=== PATIENT | female | born 1960 | race Caucasian/White ===

== ENCOUNTER 2017-06-16 09:37 | Day surgery (SDC) | payer BC, OTHER ==
[2017-06-13 13:07] VITALS: BMI 40.7
[~2017-06-16 09:37] MED LIST: LACTATED RINGERS 1,000 ML IV SCH
[2017-06-16 10:27] VITALS: RESP 18; TEMP 98.4
[2017-06-16] MEDS ORDERED: LIDOCAINE 1% 20 ML VIAL (10MG/ML) FOR IV START INTRADERMA ONE (10:35)
[2017-06-16 10:39] LABS: Glucose,Whole Blood 126 mg/dL (75-99)
[2017-06-16] MEDS ORDERED: PROPOFOL 10 MG/ML 20 ML VIAL IV ONE (11:00)
[2017-06-16] MEDS ORDERED: LIDOCAINE 1% INJ 10MG/ML (20 ML MDV) ONE (11:00)
[2017-06-16 11:46] LABS: Glucose,Whole Blood 115 mg/dL (75-99)
[2017-06-16 11:57] VITALS: BP 148/77; PULSE 80
--- NOTE | 2017-06-16 12:58 | P.PCN ---
Date of Procedure: 06/16/17 Procedure(s) Performed: Procedure: Colonoscopy and polypectomy. Preoperative diagnosis: Hemoccult-positive stools and intermittent rectal bleeding. Postoperative diagnosis: 1. Sigmoid polyp snared but no large polyps or cancer. 2. Low-grade internal hemorrhoids without bleeding at the time of this exam. Preparation: HalfLytely prep. Sedation: Was provided by anesthesia. Brief clinical history: The patient is a 56-year-old female who is referred for this evaluation for the above reasons. The patient reports intermittent bleeding with no change in bowel habits or the color of her stools. She male a stool test that returned positive. There is no family history of colon cancer and this would be her first colonoscopy. Procedure: With the patient on her left lateral decubitus position and after informed consent and adequate sedation, the perianal area was inspected and it did not show any fissures or fistulas. There were no masses felt on digital rectal examination. The Olympus CFQ 160L video colonoscope was then inserted in the rectum in the usual fashion and advanced to the cecum. There was a rare diverticular orifice in the sigmoid and at around 35 cm from the anal verge there was a small/medium-sized polyp which was snared and retrieved by suctioning it to the tip of the endoscope and withdrawing the endoscope and restarting the examination. Elsewhere, there were no other abnormalities of the cecum. I retroflexed the endoscope in the rectum before the endoscope was withdrawn. Low-grade internal hemorrhoids were noted without bleeding. The patient tolerated the procedure well. Plan: The patient was reassured. Discussed dietary measures and local care for hemorrhoids. She will follow-up with you as planned and I recommended repeat exam in 5 years.
== END 2017-06-16 12:20 | disposition home or self-care (01) ==
LOC: ORWHC2ENDO 09:37
DX: D12.5 Benign neoplasm of sigmoid colon (principal); K64.8 Other hemorrhoids; I10 Essential (primary) hypertension; E78.5 Hyperlipidemia, unspecified; G47.33 Obstructive sleep apnea (adult) (pediatric); E11.29 Type 2 diabetes mellitus with other diabetic kidney complication; N28.9 Disorder of kidney and ureter, unspecified; Z88.8 Allergy status to other drugs, medicaments and biological substances; Z79.4 Long term (current) use of insulin; Z79.899 Other long term (current) drug therapy
CPT/HCPCS: 45385; 88305; J2001; J2704

== ENCOUNTER → 2017-07-24 | Outpatient (CLI) | payer BC ==
--- NOTE | 2017-07-24 23:16 | US ---
EXAMINATION TYPE: US kidneys/renal and bladder DATE OF EXAM: 07/24/2017 COMPARISON: NONE CLINICAL HISTORY: Chronic kidney disease Stage 3 N18.3. abnormal labs EXAM MEASUREMENTS: Right Kidney: 9.3 x 4.9 x 5.4 cm Left Kidney: 9.1 x 4.0 x 5.5 cm Right Kidney: wnl as visualized Left Kidney: medial anechoic lesion at hilum = 1.4 x 1.3 cm Bladder: distended, wnl as visualized Bilateral Jets seen There is no evidence for hydronephrosis at this point in time. No nephrolithiasis is seen. No isiah s are identified in the right kidney. Technologist marked 1.4 cm round hypoechoic anechoic lesion fa voring simple cyst as there is some increased through transmission medially mid to lower pole level l eft kidney. The lesion is overall too small to definitively characterize. The urinary bladder is anec hoic. Bilateral ureteral jets are seen. IMPRESSION: No hydronephrosis is evident bilaterally.
== END | disposition home or self-care (01) ==
LOC: RADUSWWP 16:02
PROVIDERS: ATTEND Internal Medicine Nephrology
DX: N18.3 Chronic kidney disease, stage 3 (moderate) (principal)
CPT/HCPCS: 76770

== ENCOUNTER → 2019-10-11 | Outpatient (CLI) | payer BC | END | disposition home or self-care (01) | DX: N18.4 Chronic kidney disease, stage 4 (severe) (principal) | CPT/HCPCS: 76770 ==

== ENCOUNTER 2020-05-10 17:07 | Emergency (ER) | payer BC ==
[2020-05-10 17:31] VITALS: RESP 18
[2020-05-10] MEDS ORDERED: FAMOTIDINE 20 MG/2 ML VIAL IV STA (17:50)
[2020-05-10] MEDS ORDERED: SODIUM CHLORIDE 0.9% 1,000 ML IV STA (17:50)
[2020-05-10] MEDS ORDERED: ONDANSETRON 4 MG/2 ML VIAL IVP STA (17:50)
--- NOTE | 2020-05-10 17:53 | ED ---
General Adult HPI - General Chief complaint: Nausea/Vomiting/Diarrhea Stated complaint: vomiting/diarrhea Time Seen by Provider: 05/10/20 17:32 Source: patient, RN notes reviewed Mode of arrival: ambulatory Limitations: no limitations - History of Present Illness Initial comments: Patient is a pleasant 59-year-old female presenting to the emergency department with fatigue. Patient states she had 2-3 days of nausea vomiting diarrhea. Patient had approximately 3 episodes daily of vomiting and diarrhea. This has resolved however a mukherjee still has some decreased oral intake. Patient still has some nausea. No abdominal pain. No fever, temperature was 98.1 at home. Patient does have history of severe kidney disease however is not on dialysis. Patient is diabetic and her blood sugars have been doing fine. - Related Data Home Medications Medication Instructions Recorded Confirmed Aspirin 81 mg PO DAILY 06/13/17 06/16/17 Atorvastatin [Lipitor] 10 mg PO DAILY 06/13/17 06/16/17 Cholecalciferol [Vitamin D3] 1,000 unit PO DAILY 06/13/17 06/16/17 Furosemide [Lasix] 40 mg PO DAILY 06/13/17 06/16/17 Insulin Aspart (For Pump) [NovoLOG 0.01 unit SQ-PUMP CONTINUOUS 06/13/17 06/16/17 (For Pump)] Losartan Potassium [Cozaar] 25 mg PO HS 06/13/17 06/16/17 Metoprolol Succinate (ER) [Toprol 50 mg PO DAILY 06/13/17 06/16/17 Xl] Potassium Chloride [Klor-Con 20] 20 meq PO DAILY 06/13/17 06/16/17 Thiamine [Vitamin B-1] 100 mg PO DAILY 06/13/17 06/16/17 allopurinoL [Zyloprim] 100 mg PO DAILY 06/13/17 06/16/17 Previous Rx's Medication Instructions Recorded Cephalexin [Keflex] 500 mg PO TID #21 cap 05/10/20 Allergies Allergy/AdvReac Type Severity Reaction Status Date / Time lisinopril Allergy Cough Verified 06/16/17 10:30 Review of Systems ROS Statement: Those systems with pertinent positive or pertinent negative responses have been documented in the HPI. ROS Other: All systems not noted in ROS Statement are negative. Constitutional: Denies: fever Eyes: Denies: eye pain ENT: Denies: ear pain Respiratory: Denies: cough Cardiovascular: Denies: chest pain Endocrine: Reports: fatigue Gastrointestinal: Reports: as per HPI, nausea Genitourinary: Denies: dysuria Musculoskeletal: Denies: back pain Skin: Denies: rash Neurological: Denies: weakness Past Medical History Past Medical History: Hyperlipidemia, Hypertension, Renal Disease, Sleep Apnea/CPAP/BIPAP Additional Past Medical History / Comment(s): Kidney disease Stage 4 for the last 4 years, states due to her Diabetes. Also has pain in her feet. States BP has been dropping so has cut BP medication in half. History of Any Multi-Drug Resistant Organisms: None Reported Past Surgical History: Breast Surgery, Section, Uterine Ablation Additional Past Surgical History / Comment(s): L breast bx. Bilat feet surgery. Past Anesthesia/Blood Transfusion Reactions: Previous Problems w/ Anesthesia Additional Past Anesthesia/Blood Transfusion Reaction / Comment(s): States stopped breathing when she had her breast bx. States she absorbs sedation quickly and is very sensitive to sedation so she does not require very much. She is very nervous about getting sedation for this procedure. States her mother has the same problem. Past Psychological History: No Psychological Hx Reported Smoking Status: Never smoker Past Alcohol Use History: None Reported Past Drug Use History: None Reported - Past Family History Mother Family Medical History: No Reported History General Exam Limitations: no limitations General appearance: alert, in no apparent distress Head exam: Present: normocephalic Eye exam: Present: normal appearance Neck exam: Present: normal inspection Respiratory exam: Present: normal lung sounds bilaterally Cardiovascular Exam: Present: regular rate, normal rhythm GI/Abdominal exam: Present: soft. Absent: distended, tenderness, guarding, rebound, rigid Extremities exam: Present: normal inspection. Absent: pedal edema, calf tenderness Neurological exam: Present: alert Psychiatric exam: Present: normal affect, normal mood Skin exam: Present: normal color Course Vital Signs 05/10/20 17:29 Temperature 98.4 F Pulse Rate 78 Respiratory 18 Rate Blood Pressure 120/72 O2 Sat by Pulse 100 Oximetry Medical Decision Making - Medical Decision Making Patient reevaluated and resting comfortably at bedside. Patient is feeling better. Patient refuses antiemetic prescription for home. Patient believes her normal GFR is 25. Patient updated on results and need for follow-up. - Lab Data Result diagrams: 05/10/20 18:10 05/10/20 19:08 Lab Results 05/10/20 05/10/20 05/10/20 Range/Units 18:10 18:10 18:14 WBC 3.7 L (3.8-10.6) k/uL RBC 4.66 (3.80-5.40) m/uL Hgb 14.5 (11.4-16.0) gm/dL Hct 43.1 (34.0-46.0) % MCV 92.4 (80.0-100.0) fL MCH 31.1 (25.0-35.0) pg MCHC 33.7 (31.0-37.0) g/dL RDW 13.0 (11.5-15.5) % Plt Count 157 (150-450) k/uL Neutrophils % 58 % Lymphocytes % 28 % Monocytes % 9 % Eosinophils % 1 % Basophils % 1 % Neutrophils # 2.2 (1.3-7.7) k/uL Lymphocytes # 1.1 (1.0-4.8) k/uL Monocytes # 0.3 (0-1.0) k/uL Eosinophils # 0.0 (0-0.7) k/uL Basophils # 0.0 (0-0.2) k/uL Sodium (137-145) mmol/L Potassium (3.5-5.1) mmol/L Chloride (98-107) mmol/L Carbon Dioxide (22-30) mmol/L Anion Gap mmol/L BUN (7-17) mg/dL Creatinine (0.52-1.04) mg/dL Est GFR (CKD-EPI)AfAm (>60 ml/min/1.73 sqM) Est GFR (CKD-EPI)NonAf (>60 ml/min/1.73 sqM) Glucose (74-99) mg/dL POC Glucose (mg/dL) 137 H (75-99) mg/dL POC Glu [place] ID Mariana Mercedes Calcium (8.4-10.2) mg/dL Total Bilirubin (0.2-1.3) mg/dL AST (14-36) U/L ALT (4-34) U/L Alkaline Phosphatase (38-126) U/L Total Protein (6.3-8.2) g/dL Albumin (3.5-5.0) g/dL Amylase (30-110) U/L Lipase (23-300) U/L Urine Color Yellow Urine Appearance Clear (Clear) Urine pH 5.0 (5.0-8.0) Ur Specific [place] 1.012 (1.001-1.035) Urine Protein Negative (Negative) Urine Glucose (UA) Negative (Negative) Urine Ketones Negative (Negative) Urine Blood Negative (Negative) Urine Nitrite Negative (Negative) Urine Bilirubin Negative (Negative) Urine Urobilinogen <2.0 (<2.0) mg/dL Ur Leukocyte Esterase Large H (Negative) Urine RBC 1 (0-5) /hpf Urine WBC 22 H (0-5) /hpf Ur Squamous Epith Cells 1 (0-4) /hpf Urine Bacteria Rare H (None) /hpf Hyaline Casts 13 H (0-2) /lpf Urine Mucus Rare H (None) /hpf 10//20 Range/Units 19:08 WBC (3.8-10.6) k/uL RBC (3.80-5.40) m/uL Hgb (11.4-16.0) gm/dL Hct (34.0-46.0) % MCV (80.0-100.0) fL MCH (25.0-35.0) pg MCHC (31.0-37.0) g/dL RDW (11.5-15.5) % Plt Count (150-450) k/uL Neutrophils % % Lymphocytes % % Monocytes % % Eosinophils % % Basophils % % Neutrophils # (1.3-7.7) k/uL Lymphocytes # (1.0-4.8) k/uL Monocytes # (0-1.0) k/uL Eosinophils # (0-0.7) k/uL Basophils # (0-0.2) k/uL Sodium 134 L (137-145) mmol/L Potassium 4.2 (3.5-5.1) mmol/L Chloride 100 (98-107) mmol/L Carbon Dioxide 21 L (22-30) mmol/L Anion Gap 13 mmol/L BUN 53 H (7-17) mg/dL Creatinine 2.36 H (0.52-1.04) mg/dL Est GFR (CKD-EPI)AfAm 25 (>60 ml/min/1.73 sqM) Est GFR (CKD-EPI)NonAf 22 (>60 ml/min/1.73 sqM) Glucose 123 H (74-99) mg/dL POC Glucose (mg/dL) (75-99) mg/dL POC Glu [place] ID Calcium 8.7 (8.4-10.2) mg/dL Total Bilirubin 0.4 (0.2-1.3) mg/dL AST 53 H (14-36) U/L ALT 21 (4-34) U/L Alkaline Phosphatase 88 (38-126) U/L Total Protein 7.4 (6.3-8.2) g/dL Albumin 4.1 (3.5-5.0) g/dL Amylase 44 (30-110) U/L Lipase 28 (23-300) U/L Urine Color Urine Appearance (Clear) Urine pH (5.0-8.0) Ur Specific [place] (1.001-1.035) Urine Protein (Negative) Urine Glucose (UA) (Negative) Urine Ketones (Negative) Urine Blood (Negative) Urine Nitrite (Negative) Urine Bilirubin (Negative) Urine Urobilinogen (<2.0) mg/dL Ur Leukocyte Esterase (Negative) Urine RBC (0-5) /hpf Urine WBC (0-5) /hpf Ur Squamous Epith Cells (0-4) /hpf Urine Bacteria (None) /hpf Hyaline Casts (0-2) /lpf Urine Mucus (None) /hpf Disposition Clinical Impression: Dehydration, Urinary tract infection Disposition: HOME SELF-CARE Condition: Stable Instructions (If sedation given, give patient instructions): Acute Nausea and Vomiting (ED) Additional Instructions: Please follow-up with primary care physician and fuel oil truck driver in the next couple days for recheck. Have them compare renal function labs to previous. Prescription has been sent to [facility] in [place] Prescriptions: Cephalexin [Keflex] 500 mg PO TID #21 cap Is patient prescribed a controlled substance at d/c from ED?: No Referrals: Markie Luciano MD [Primary Care Provider] - 1-2 days Yvonne Gtz MD [STAFF PHYSICIAN] - 1-2 days Time of Disposition: 19:32
[2020-05-10 18:15] LABS: Glucose,Whole Blood 137 mg/dL (75-99)
[2020-05-10 18:26] LABS: Basophils % (A) 1 %; Eosinophils % (A) 1 %; HCT 43.1 % (34.0-46.0); HGB 14.5 gm/dL (11.4-16.0); Lymphocytes # (A) 1.1 k/uL (1.0-4.8); Lymphocytes % (A) 28 %; MCH 31.1 pg (25.0-35.0); MCHC 33.7 g/dL (31.0-37.0); MCV 92.4 fL (80.0-100.0); Mean Platelet Volume 7.9; Monocytes # (A) 0.3 k/uL (0-1.0); Monocytes % (A) 9 %; Neutrophils # (A) 2.2 k/uL (1.3-7.7); Neutrophils % (A) 58 %; Platelet Count 157 k/uL (150-450); RBC 4.66 m/uL (3.80-5.40); WBC 3.7 k/uL (3.8-10.6)
[2020-05-10 18:32] LABS: Appearance,Urine Clear (Clear); Bacteria,Urine Rare /hpf; Bilirubin,Urine Negative (Negative); Blood,Urine Negative (Negative); Color,Urine Yellow; Glucose,Urine (UA) Negative (Negative); Hyaline Casts,Urine 13 /lpf (0-2); Ketones,Urine Negative (Negative); Leukocyte Esterase,Urine Large (Negative); Mucus,Urine Rare /hpf; Nitrite,Urine Negative (Negative); Protein,Urine Negative (Negative); RBC,Urine 1 /hpf (0-5); Specific Gravity,Urine 1.012 (1.001-1.035); Squamous Epithelial Cell,Urine 1 /hpf (0-4); Urobilinogen,Urine <2.0 mg/dL (<2.0); WBC,Urine 22 /hpf (0-5)
[2020-05-10 19:19] LABS: Albumin 4.1 g/dL (3.5-5.0); Calcium 8.7 mg/dL (8.4-10.2); Potassium 4.2 mmol/L (3.5-5.1); Total Bilirubin 0.4 mg/dL (0.2-1.3); Total Protein 7.4 g/dL (6.3-8.2)
[2020-05-10 19:45] VITALS: BP 124/63; PULSE 82; TEMP 97.9
== END 2020-05-10 19:45 | disposition home or self-care (01) ==
LOC: EC 17:07
DX: E86.0 Dehydration (principal); N39.0 Urinary tract infection, site not specified; I10 Essential (primary) hypertension; E78.5 Hyperlipidemia, unspecified; G47.30 Sleep apnea, unspecified; E11.9 Type 2 diabetes mellitus without complications; Z79.82 Long term (current) use of aspirin; Z79.4 Long term (current) use of insulin; Z79.899 Other long term (current) drug therapy; Z88.8 Allergy status to other drugs, medicaments and biological substances
CPT/HCPCS: 36415; 80053; 81001; 82150; 83690; 85025; 87086; 96360; 99284

== ENCOUNTER 2020-05-15 17:32 | Emergency (ER) | payer BC ==
[2020-05-15 17:45] VITALS: RESP 18
--- NOTE | 2020-05-15 18:01 | ED ---
General Adult HPI - General Chief complaint: Shortness of Breath Stated complaint: SOB/dizziness Time Seen by Provider: 05/15/20 17:47 Source: patient, RN notes reviewed Mode of arrival: wheelchair Limitations: no limitations - History of Present Illness Initial comments: Patient is a pleasant 59-year-old female presenting to the emergency department with lightheadedness and dyspnea. Symptoms have progressed over several days. Patient was exposed to people who tested positive for cold bed and heard practitioner is suspicious that is what she has. They did an outpatient test that is pending. They also checked a test that she believes may have been a d- dimer and requests that she had a lung scan done. Patient has fatigue and has been tired. Patient has mild shortness of breath. Patient has had temperatures up to 100. Patient has had mild cough and mild rhinorrhea. Patient was recently here for nausea vomiting however that has resolved. - Related Data Home Medications Medication Instructions Recorded Confirmed Aspirin 81 mg PO DAILY 06/13/17 06/16/17 Atorvastatin [Lipitor] 10 mg PO DAILY 06/13/17 06/16/17 Cholecalciferol [Vitamin D3] 1,000 unit PO DAILY 06/13/17 06/16/17 Furosemide [Lasix] 40 mg PO DAILY 06/13/17 06/16/17 Insulin Aspart (For Pump) [NovoLOG 0.01 unit SQ-PUMP CONTINUOUS 06/13/17 06/16/17 (For Pump)] Losartan Potassium [Cozaar] 25 mg PO HS 06/13/17 06/16/17 Metoprolol Succinate (ER) [Toprol 50 mg PO DAILY 06/13/17 06/16/17 Xl] Potassium Chloride [Klor-Con 20] 20 meq PO DAILY 06/13/17 06/16/17 Thiamine [Vitamin B-1] 100 mg PO DAILY 06/13/17 06/16/17 allopurinoL [Zyloprim] 100 mg PO DAILY 06/13/17 06/16/17 Previous Rx's Medication Instructions Recorded Cephalexin [Keflex] 500 mg PO TID #21 cap 05/10/20 Allergies Allergy/AdvReac Type Severity Reaction Status Date / Time lisinopril Allergy Cough Verified 05/15/20 17:45 Review of Systems ROS Statement: Those systems with pertinent positive or pertinent negative responses have been documented in the HPI. ROS Other: All systems not noted in ROS Statement are negative. Constitutional: Reports: as per HPI Eyes: Denies: eye pain ENT: Denies: ear pain Respiratory: Reports: as per HPI Cardiovascular: Denies: chest pain Endocrine: Reports: fatigue Gastrointestinal: Denies: abdominal pain Genitourinary: Denies: dysuria Musculoskeletal: Denies: back pain Skin: Denies: rash Neurological: Denies: weakness Past Medical History Past Medical History: Diabetes Mellitus, Hyperlipidemia, Hypertension, Renal Disease, Sleep Apnea/CPAP/BIPAP Additional Past Medical History / Comment(s): Kidney disease Stage 4 for the last 4 years, states due to her Diabetes. Also has pain in her feet. History of Any Multi-Drug Resistant Organisms: None Reported Past Surgical History: Breast Surgery, Section, Uterine Ablation Additional Past Surgical History / Comment(s): L breast bx. Bilat feet surgery. Past Anesthesia/Blood Transfusion Reactions: Previous Problems w/ Anesthesia Additional Past Anesthesia/Blood Transfusion Reaction / Comment(s): States stopped breathing when she had her breast bx. States she absorbs sedation quickly and is very sensitive to sedation so she does not require very much. She is very nervous about getting sedation for this procedure. States her mother has the same problem. Past Psychological History: No Psychological Hx Reported Smoking Status: Never smoker Past Alcohol Use History: None Reported Past Drug Use History: None Reported - Past Family History Mother Family Medical History: No Reported History General Exam Limitations: no limitations General appearance: alert, in no apparent distress Head exam: Present: normocephalic Eye exam: Present: normal appearance Neck exam: Present: normal inspection Respiratory exam: Present: normal lung sounds bilaterally Cardiovascular Exam: Present: regular rate, normal rhythm GI/Abdominal exam: Present: soft. Absent: tenderness Extremities exam: Present: normal inspection. Absent: pedal edema, calf tenderness Neurological exam: Present: alert Psychiatric exam: Present: normal affect, normal mood Skin exam: Present: normal color Course Vital Signs 05/15/20 17:39 Temperature 98.6 F Pulse Rate 95 Respiratory 18 Rate Blood Pressure 120/68 O2 Sat by Pulse 98 Oximetry EKG Findings - EKG Comments: EKG Findings:: Normal sinus rhythm 87. FL 142. QRS 88. QT 370. QTc 445 left axis. Criteria for LVH. No acute ST change Medical Decision Making - Medical Decision Making Patient reevaluated and updated. Patient is comfortable and would like to be d ischarged home. Patient is agreeable to follow-up and will quarantined herself until results are available for her on Friday on her coronavirus testing. - Lab Data Result diagrams: 05/15/20 18:07 05/15/20 18:07 Lab Results 05/15/20 05/15/20 05/15/20 Range/Units 18:07 18:07 18:07 WBC 4.9 (3.8-10.6) k/uL RBC 4.56 (3.80-5.40) m/uL Hgb 13.9 (11.4-16.0) gm/dL Hct 42.2 (34.0-46.0) % MCV 92.4 (80.0-100.0) fL MCH 30.4 (25.0-35.0) pg MCHC 32.8 (31.0-37.0) g/dL RDW 13.0 (11.5-15.5) % Plt Count 182 (150-450) k/uL Neutrophils % 77 % Lymphocytes % 11 % Monocytes % 6 % Eosinophils % 2 % Basophils % 1 % Neutrophils # 3.7 (1.3-7.7) k/uL Lymphocytes # 0.6 L (1.0-4.8) k/uL Monocytes # 0.3 (0-1.0) k/uL Eosinophils # 0.1 (0-0.7) k/uL Basophils # 0.1 (0-0.2) k/uL PT 10.8 (9.0-12.0) sec INR 1.0 (<1.2) APTT 23.1 (22.0-30.0) sec Sodium 132 L (137-145) mmol/L Potassium 4.9 (3.5-5.1) mmol/L Chloride 98 (98-107) mmol/L Carbon Dioxide 23 (22-30) mmol/L Anion Gap 11 mmol/L BUN 40 H (7-17) mg/dL Creatinine 1.78 H (0.52-1.04) mg/dL Est GFR (CKD-EPI)AfAm 36 (>60 ml/min/1.73 sqM) Est GFR (CKD-EPI)NonAf 31 (>60 ml/min/1.73 sqM) Glucose 139 H (74-99) mg/dL Calcium 8.8 (8.4-10.2) mg/dL Total Bilirubin 0.7 (0.2-1.3) mg/dL AST 59 H (14-36) U/L ALT 23 (4-34) U/L Alkaline Phosphatase 87 (38-126) U/L Troponin I (0.000-0.034) ng/mL NT-Pro-B Natriuret Pep pg/mL Total Protein 7.5 (6.3-8.2) g/dL Albumin 3.9 (3.5-5.0) g/dL 05/15/20 05/15/20 Range/Units 18:07 18:07 WBC (3.8-10.6) k/uL RBC (3.80-5.40) m/uL Hgb (11.4-16.0) gm/dL Hct (34.0-46.0) % MCV (80.0-100.0) fL MCH (25.0-35.0) pg MCHC (31.0-37.0) g/dL RDW (11.5-15.5) % Plt Count (150-450) k/uL Neutrophils % % Lymphocytes % % Monocytes % % Eosinophils % % Basophils % % Neutrophils # (1.3-7.7) k/uL Lymphocytes # (1.0-4.8) k/uL Monocytes # (0-1.0) k/uL Eosinophils # (0-0.7) k/uL Basophils # (0-0.2) k/uL PT (9.0-12.0) sec INR (<1.2) APTT (22.0-30.0) sec Sodium (137-145) mmol/L Potassium (3.5-5.1) mmol/L Chloride (98-107) mmol/L Carbon Dioxide (22-30) mmol/L Anion Gap mmol/L BUN (7-17) mg/dL Creatinine (0.52-1.04) mg/dL Est GFR (CKD-EPI)AfAm (>60 ml/min/1.73 sqM) Est GFR (CKD-EPI)NonAf (>60 ml/min/1.73 sqM) Glucose (74-99) mg/dL Calcium (8.4-10.2) mg/dL Total Bilirubin (0.2-1.3) mg/dL AST (14-36) U/L ALT (4-34) U/L Alkaline Phosphatase (38-126) U/L Troponin I <0.012 (0.000-0.034) ng/mL NT-Pro-B Natriuret Pep 644 pg/mL Total Protein (6.3-8.2) g/dL Albumin (3.5-5.0) g/dL - Radiology Data Radiology results: report reviewed (Case was discussed with Dr. adams who felt study was normal.), image reviewed (Chest x-ray shows no acute process) Disposition Clinical Impression: Upper respiratory infection, Dyspnea Disposition: HOME SELF-CARE Condition: Stable Instructions (If sedation given, give patient instructions): Dyspnea (ED), Upper Respiratory Infection (ED) Additional Instructions: Please follow-up with primary care physician tomorrow. Please quarantine your self until results are available. If symptoms continue consider pulmonary follow-up. Return for difficulty breathing, pain, fevers, worsening symptoms or other concerns. Is patient prescribed a controlled substance at d/c from ED?: No Referrals: Markie Luciano MD [Primary Care Provider] - 1-2 days Time of Disposition: 21:00
[2020-05-15 18:41] LABS: Albumin 3.9 g/dL (3.5-5.0); Calcium 8.8 mg/dL (8.4-10.2); Potassium 4.9 mmol/L (3.5-5.1); Total Bilirubin 0.7 mg/dL (0.2-1.3); Total Protein 7.5 g/dL (6.3-8.2)
[2020-05-15 18:46] LABS: Basophils # (A) 0.1 k/uL (0-0.2); Basophils % (A) 1 %; Eosinophils # (A) 0.1 k/uL (0-0.7); Eosinophils % (A) 2 %; HCT 42.2 % (34.0-46.0); HGB 13.9 gm/dL (11.4-16.0); Lymphocytes # (A) 0.6 k/uL (1.0-4.8); Lymphocytes % (A) 11 %; MCH 30.4 pg (25.0-35.0); MCHC 32.8 g/dL (31.0-37.0); MCV 92.4 fL (80.0-100.0); Mean Platelet Volume 8.1; Monocytes # (A) 0.3 k/uL (0-1.0); Monocytes % (A) 6 %; Neutrophils # (A) 3.7 k/uL (1.3-7.7); Neutrophils % (A) 77 %; Platelet Count 182 k/uL (150-450); RBC 4.56 m/uL (3.80-5.40); WBC 4.9 k/uL (3.8-10.6)
[2020-05-15 18:54] LABS: Partial Thromboplastin Time 23.1 sec (22.0-30.0); Prothrombin Time 10.8 sec (9.0-12.0)
--- NOTE | 2020-05-15 18:58 | XR ---
EXAMINATION TYPE: XR chest 2V DATE OF EXAM: 05/15/2020 COMPARISON: NONE HISTORY: Fever for 2 weeks. TECHNIQUE: Frontal and lateral views of the chest are obtained. FINDINGS: There is no focal air space opacity, pleural effusion, or pneumothorax seen. The cardiac silhouette size is within normal limits. The osseous structures are intact. IMPRESSION: No acute cardiopulmonary process.
--- NOTE | 2020-05-15 20:41 | NM ---
EXAMINATION TYPE: NM pul perfusion DATE OF EXAM: 05/15/2020 COMPARISON: Chest x-ray from earlier today HISTORY: Dyspnea. Following administration of 4.9 mCi Tc 99m MAA. Images obtained post injection. FINDINGS: Perfusion images show fairly satisfactory bilateral uptake without moderate or large areas of diminis hed radiotracer perfusion identified in either lung. IMPRESSION: As above.
[2020-05-15 21:15] VITALS: BP 124/68; PULSE 84; TEMP 98.1
== END 2020-05-15 21:15 | disposition home or self-care (01) ==
LOC: EC 17:32
DX: J06.9 Acute upper respiratory infection, unspecified (principal); E11.22 Type 2 diabetes mellitus with diabetic chronic kidney disease; I12.9 Hypertensive chronic kidney disease with stage 1 through stage 4 chronic kidney disease, or unspecified chronic kidney disease; N18.4 Chronic kidney disease, stage 4 (severe); G47.30 Sleep apnea, unspecified; E78.5 Hyperlipidemia, unspecified; M79.673 Pain in unspecified foot; Z79.899 Other long term (current) drug therapy; Z79.82 Long term (current) use of aspirin; Z79.4 Long term (current) use of insulin; Z88.8 Allergy status to other drugs, medicaments and biological substances; Z99.89 Dependence on other enabling machines and devices
CPT/HCPCS: 36415; 93005; 83880; 80053; 84484; 85025; 85610; 85730; 71046; 78580; 99285; A9540

== ENCOUNTER 2021-05-04 14:02 | Emergency (ER) | payer BC ==
--- NOTE | 2021-05-04 14:53 | ED ---
General Adult HPI - General Source: patient (f), RN notes reviewed Mode of arrival: ambulatory Limitations: no limitations <Lamine Campbell - Last Filed: 05/04/21 14:52> <Coby Brandon - Last Filed: 05/05/21 05:58> - General Stated complaint: Left knee pain, injury Time Seen by Provider: 05/04/21 14:40 - History of Present Illness Initial comments: This a 60-year-old female presents emergency Department chief complaint left knee pain. Patient went to jump over a fence, states that she landed on her feet and felt a Pop in left knee. Patient complains of severe left flank pain. Patient states that she had to climb back up 60 steps and states that she had to go onto her multiple buttocks to do this. Patient cannot putting pressure on the left knee. (Lamine Campbell) - Related Data Home Medications Medication Instructions Recorded Confirmed Aspirin 81 mg PO DAILY 06/13/17 06/16/17 Atorvastatin [Lipitor] 10 mg PO DAILY 06/13/17 06/16/17 Cholecalciferol [Vitamin D3] 1,000 unit PO DAILY 06/13/17 06/16/17 Furosemide [Lasix] 40 mg PO DAILY 06/13/17 06/16/17 Insulin Aspart (For Pump) [NovoLOG 0.01 unit SQ-PUMP CONTINUOUS 06/13/17 06/16/17 (For Pump)] Losartan Potassium [Cozaar] 25 mg PO HS 06/13/17 06/16/17 Metoprolol Succinate (ER) [Toprol 50 mg PO DAILY 06/13/17 06/16/17 Xl] Potassium Chloride [Klor-Con 20] 20 meq PO DAILY 06/13/17 06/16/17 Thiamine [Vitamin B-1] 100 mg PO DAILY 06/13/17 06/16/17 allopurinoL [Zyloprim] 100 mg PO DAILY 06/13/17 06/16/17 Previous Rx's Medication Instructions Recorded Cephalexin [Keflex] 500 mg PO TID #21 cap 05/10/20 Acetaminophen-Codeine 300-30mg 1 tab PO Q6H PRN #12 tablet 05/04/21 [Tylenol #3] Acetaminophen-Codeine 300-30mg 1 tab PO Q6H PRN #12 tablet 05/04/21 [Tylenol #3] Allergies Allergy/AdvReac Type Severity Reaction Status Date / Time lisinopril Allergy Cough Verified 05/04/21 14:54 Review of Systems ROS Other: All systems not noted in ROS Statement are negative. <Lamine Campbell - Last Filed: 05/04/21 14:52> ROS Other: All systems not noted in ROS Statement are negative. <Coby Brandon - Last Filed: 05/05/21 05:58> ROS Statement: Those systems with pertinent positive or pertinent negative responses have been documented in the HPI. Past Medical History Past Medical History: Diabetes Mellitus, Hyperlipidemia, Hypertension, Renal Disease, Sleep Apnea/CPAP/BIPAP Additional Past Medical History / Comment(s): Kidney disease Stage 4 for the last 4 years, states due to her Diabetes. Also has pain in her feet. History of Any Multi-Drug Resistant Organisms: None Reported Past Surgical History: Breast Surgery, Section, Uterine Ablation Additional Past Surgical History / Comment(s): L breast bx. Bilat feet surgery. Past Anesthesia/Blood Transfusion Reactions: Previous Problems w/ Anesthesia Additional Past Anesthesia/Blood Transfusion Reaction / Comment(s): States stopped breathing when she had her breast bx. States she absorbs sedation quickly and is very sensitive to sedation so she does not require very much. She is very nervous about getting sedation for this procedure. States her mother has the same problem. Past Psychological History: No Psychological Hx Reported Smoking Status: Never smoker Past Alcohol Use History: None Reported Past Drug Use History: None Reported - Past Family History Mother Family Medical History: No Reported History <Lamine Campbell - Last Filed: 05/04/21 14:52> Course Vital Signs 05/04/21 14:52 Temperature 98.5 F Pulse Rate 85 Respiratory 20 Rate Blood Pressure 149/81 O2 Sat by Pulse 99 Oximetry Medical Decision Making - Radiology Data Radiology results: report reviewed, image reviewed <Coby Brandon - Last Filed: 05/05/21 05:58> - Medical Decision Making 60-year-old female patient presented to the emergency department today for evaluation of left knee pain after injury. Physical examination did reveal tenderness over the anterior knee and the left proximal calf. No evidence for swelling or ecchymosis. Neurovascular status is intact. X-ray showed no acute fracture. Did place a knee immobilizer. She'll be discharged to follow-up with the primary care physician orthopedics for further evaluation. She does have access to crutches and walker. Return parameters discussed in detail. Patient and verbalize understanding and agree with this plan. My attending is Dr. Xiong. In regards to HPI entered by Lamine Campbell PA-c reporting severe left flank pain, this is felt to be a typo, she denies any flank or back pain. (Coby Brandon) - Radiology Data X-ray of the left knee were obtained. Report was reviewed in its entirety. Impression by Dr. paulson shows no acute fracture dislocation. Moderate sized suprapatellar bursal fluid collection with arthropathy. (Coby Brandon) Disposition <Lamine Campbell - Last Filed: 05/04/21 14:52> Is patient prescribed a controlled substance at d/c from ED?: Yes When asked, does pt state using other controlled substances?: No If prescribed controlled substance>3 days was MAPS reviewed?: Prescribed <3 Days If opioid is for acute pain is fill amount 7 days or less?: Yes If Rx opioid, was Start Talking consent form obtained?: Yes Time of Disposition: 17:11 <Coby Brandon - Last Filed: 05/05/21 05:58> Clinical Impression: Left knee pain, Effusion, left knee Disposition: HOME SELF-CARE Condition: Good Instructions (If sedation given, give patient instructions): Knee Pain (ED), Knee Immobilizer (ED) Additional Instructions: Take Motrin 3 times daily for pain. Use Tylenol codeine sparingly as needed for severe pain. Follow up with orthopedics for recheck in 1 week if her symptoms are not improved. Return to the emergency department for any new, worsening, or concerning symptoms. Prescriptions: Acetaminophen-Codeine 300-30mg [Tylenol #3] 1 tab PO Q6H PRN #12 tablet PRN Reason: Pain Acetaminophen-Codeine 300-30mg [Tylenol #3] 1 tab PO Q6H PRN #12 tablet PRN Reason: Pain Referrals: Markie Luciano MD [Primary Care Provider] - 1-2 days Rick Sandoval MD [Medical Doctor] - 1-2 days
[2021-05-04 14:54] VITALS: BP 149/81; PULSE 85; RESP 20; TEMP 98.5
--- NOTE | 2021-05-04 15:26 | XR ---
EXAMINATION TYPE: XR knee complete LT DATE OF EXAM: 05/04/2021 COMPARISON: NONE HISTORY: Pain TECHNIQUE: Three views are submitted. FINDINGS: Moderate suprapatellar bursal fluid collection. Narrowing of the medial compartment of the knee joint and patellofemoral joint.. Osseous structures are intact. No acute fracture seen. IMPRESSION: 1. No acute fracture or dislocation. 2. There is a moderate-sized suprapatellar bursal fluid collection with arthropathy.
== END 2021-05-04 17:32 | disposition home or self-care (01) ==
LOC: EC 14:02
DX: M25.462 Effusion, left knee (principal); R10.9 Unspecified abdominal pain; I12.9 Hypertensive chronic kidney disease with stage 1 through stage 4 chronic kidney disease, or unspecified chronic kidney disease; E11.22 Type 2 diabetes mellitus with diabetic chronic kidney disease; N18.4 Chronic kidney disease, stage 4 (severe); E78.5 Hyperlipidemia, unspecified; G47.30 Sleep apnea, unspecified; Z79.4 Long term (current) use of insulin; Z79.82 Long term (current) use of aspirin
CPT/HCPCS: 99284

== ENCOUNTER 2023-03-11 07:47 | Day surgery (SDC) | payer BC, MEDICARE ==
[2023-03-05 15:22] VITALS: BMI 44.2
[2023-03-11 08:05] VITALS: RESP 18; TEMP 97.2
[2023-03-11] MEDS ORDERED: SODIUM CHLORIDE 0.9% 500 ML 500 ML IV ONE (08:06)
[2023-03-11 08:08] LABS: Glucose,Whole Blood 113 mg/dL (70-110)
[2023-03-11] MEDS ORDERED: fentaNYL (PF) 50 MCG/ML 2 ML AMP ONE (08:46)
[2023-03-11] MEDS ORDERED: BENZOCAINE SPRAY 1 CAN MUCOUS MEM ONE (09:20)
[2023-03-11] MEDS ORDERED: fentaNYL (PF) 50 MCG/ML 2 ML AMP IVP ONE (09:20)
[2023-03-11] MEDS ORDERED: MIDAZOLAM 2 MG/2 ML VIAL IVP ONE (09:20)
--- NOTE | 2023-03-11 10:29 | ECHOT ---
TRANSESOPHAGEAL ECHOCARDIOGRAM INDICATION: Abnormal 2D echo. PROCEDURE NOTE: After obtaining informed consent, transesophageal echocardiogram was performed in left lateral position using an Omniplane probe. Local and IV sedation were obtained using 2 mg of Versed and 25 mcg of fentanyl. Total sedation time was 10 minutes. The patient tolerated the procedure well without any obvious immediate complications. FINDINGS: Mitral valve appears anatomically normal. There is mild central mitral regurgitation noted. There is a calcific density involving the posterior mitral annulus, but I do not see any evidence of flail leaflet. Aortic valve is a 3-leaflet valve. There is no evidence of aortic stenosis or regurgitation. Tricuspid valve shows mild tricuspid regurgitation. Left atrium appears enlarged. Right atrium and right ventricle seem within normal limits. Left ventricle has normal size and systolic function. There is no evidence of [id number] shunt by color-flow Doppler or rseen-[id number] shunt by agitated saline contrast study. CONCLUSIONS: 1. Normal LV systolic function. 2. Left atrial enlargement. 3. Thickened and calcified posterior mitral annulus of unclear clinical significance with mild central mitral regurgitation. MMODL / IJN: [id number] /
[2023-03-11 11:09] VITALS: BP 138/64; PULSE 76
== END 2023-03-11 10:03 | disposition home or self-care (01) ==
LOC: CATHCVL 07:47
PROVIDERS: ATTEND Internal Medicine Cardiovascular Disease
DX: I34.0 Nonrheumatic mitral (valve) insufficiency (principal); I51.7 Cardiomegaly
CPT/HCPCS: 93312; 93320; 93325; J2250; J3010

== ENCOUNTER 2024-11-10 15:43 | Observation (INO) | payer MEDICARE ==
--- NOTE | 2024-11-10 16:40 | ED ---
General Adult HPI - General Chief complaint: Dizziness Stated complaint: blurred vision Time Seen by Provider: 11/10/24 15:50 Source: patient, RN notes reviewed Mode of arrival: ambulatory Limitations: no limitations - History of Present Illness Initial comments: 64-year-old female presents to the emergency department for evaluation of double vision. Patient was sent in by Dr. Gracia. The patient states that the symptoms have been going on around 1 week. She notes that over the past 2 days the symptoms have progressively worsened. She initially saw Dr. Gracia who stated that the symptoms should improve. She followed up again today as the symptoms had been worsening. This prompted her presentation to the emergency department today after her evaluation by the mirror polisher. She reports a history of insulin-dependent diabetes, vitreous hemorrhage, CKD. - Related Data Home Medications Medication Instructions Recorded Confirmed Aspirin 81 mg PO DAILY 06/13/17 03/11/23 Atorvastatin [Lipitor] 10 mg PO DAILY 06/13/17 03/11/23 Cholecalciferol [Vitamin D3] 1,000 unit PO DAILY 06/13/17 03/11/23 Furosemide [Lasix] 40 mg PO DAILY 06/13/17 03/11/23 Insulin Aspart (For Pump) [NovoLOG 0.01 unit SQ-PUMP CONTINUOUS 06/13/17 03/11/23 (For Pump)] Losartan Potassium [Cozaar] 25 mg PO HS 06/13/17 03/11/23 Metoprolol Succinate (ER) [Toprol 50 mg PO BID 06/13/17 03/11/23 Xl] Potassium Chloride [Klor-Con 20] 20 meq PO DAILY 06/13/17 03/11/23 Thiamine [Vitamin B-1] 100 mg PO DAILY 06/13/17 03/11/23 allopurinoL [Zyloprim] 100 mg PO DAILY 06/13/17 03/11/23 Biotin (Unknown Dose) 1 tab PO DAILY 03/05/23 03/11/23 Cranberry (Unknown Dose) 1 tab PO BID 03/05/23 03/11/23 Previous Rx's Medication Instructions Recorded Acetaminophen-Codeine 300-30mg 1 tab PO Q6H PRN #12 tablet 05/04/21 [Tylenol #3] Allergies Allergy/AdvReac Type Severity Reaction Status Date / Time lisinopril Allergy Cough Verified 11/10/24 15:47 Review of Systems ROS Statement: Those systems with pertinent positive or pertinent negative responses have been documented in the HPI. ROS Other: All systems not noted in ROS Statement are negative. Past Medical History Past Medical History: Diabetes Mellitus, Hyperlipidemia, Hypertension, Renal Disease, Sleep Apnea/CPAP/BIPAP Additional Past Medical History / Comment(s): Kidney Disease - Stage 4. Urinary retention, has to self cath BID. Pain in feet. No sleep apnea device use. Varicose veins. History of Any Multi-Drug Resistant Organisms: None Reported Past Surgical History: Breast Surgery, Section, Orthopedic Surgery, Uterine Ablation Additional Past Surgical History / Comment(s): Left breast biopsy, bilateral foot surgery. Past Anesthesia/Blood Transfusion Reactions: Previous Problems w/ Anesthesia, Motion Sickness Additional Past Anesthesia/Blood Transfusion Reaction / Comment(s): States stopped breathing when she had her breast biopsy. States she absorbs sedation quickly and is very sensitive to sedation so she does not require very much. States her mother and grandmother have the same problem. Past Psychological History: No Psychological Hx Reported Smoking Status: Never smoker Past Alcohol Use History: None Reported Past Drug Use History: None Reported - Past Family History Mother Family Medical History: No Reported History Father Family Medical History: Cancer Additional Family Medical History / Comment(s): Gist Tumor wrapped around esophagus. General Exam Limitations: no limitations General appearance: alert, in no apparent distress Eye exam: Present: PERRL, other (Decreased abduction of the left eye). Absent: EOMI ENT exam: Present: normal exam, mucous membranes moist, TM's normal bilaterally, normal external ear exam Neck exam: Present: normal inspection, full ROM. Absent: tenderness, meningismus, lymphadenopathy Respiratory exam: Present: normal lung sounds bilaterally. Absent: respiratory distress, wheezes, rales, rhonchi, stridor Cardiovascular Exam: Present: regular rate, normal rhythm, normal heart sounds. Absent: systolic murmur, diastolic murmur, rubs, gallop, clicks Course Vital Signs 11/10/24 15:44 Temperature 97.8 F Pulse Rate 84 Respiratory 16 Rate Blood Pressure 158/83 O2 Sat by Pulse 99 Oximetry Medical Decision Making - Medical Decision Making Was pt. sent in by a medical professional or institution (, PA, MANAGER FIELD [employer]IG[employer], urgent care, hospital, or snf...) When possible be specific @ -[No] Did you speak to anyone other than the patient for history (EMS, parent, family, police, friend...)? What history was obtained from this source @ -[No] Did you review nursing and triage notes (agree or disagree)? Why? @ -[I reviewed and agree with nursing and triage notes] Were old charts reviewed (outside hosp., previous admission, EMS record, old EKG, old radiological studies, urgent care reports/EKG's, snf records)? Report findings @ -[No old charts were reviewed] Differential Diagnosis (chest pain, altered mental status, abdominal pain women, abdominal pain men, vaginal bleeding, weakness, fever, dyspnea, syncope, headache, dizziness, GI bleed, back pain, seizure, CVA, palpatations, mental health, musculoskeletal)? @ -[not applicable] EKG interpreted by me (3pts min.). @ -[As above] X-rays interpreted by me (1pt min.). @ -[None done] CT interpreted by me (1pt min.). @ -[None done] U/S interpreted by me (1pt. min.). @ -[None done] What testing was considered but not performed or refused? (CT, X-rays, U/S, labs)? Why? @ -[None] What meds were considered but not given or refused? Why? @ -[None] Did you discuss the management of the patient with other professionals (professionals i.e. , PA, [employer], lab, RT, psych nurse, clinical social worker, equity manager, teacher, v/stol landing signal officer, correctional case manager)? Give summary @ -[No] Was smoking cessation discussed for >3mins.? @ -[No] Was critical care preformed (if so, how long)? @ -[No] Were there social determinants of health that impacted care today? How? (Homelessness, low income, unemployed, alcoholism, drug addiction, transportation, low edu. Level, literacy, decrease access to med. care, residential, rehab)? @ -[No] Was there de-escalation of care discussed even if they declined (Discuss DNR or withdrawal of care, Hospice)? DNR status @ -[No] What co-morbidities impacted this encounter? (DM, HTN, Smoking, COPD, CAD, Cancer, CVA, ARF, Chemo, Hep., AIDS, mental health diagnosis, sleep apnea, morbid obesity)? @ -[None] Was patient admitted / discharged? Hospital course, mention meds given and route, prescriptions, significant lab abnormalities, going to OR and other pertinent info. @ -[hospital course] Undiagnosed new problem with uncertain prognosis? @ -[No] Drug Therapy requiring intensive monitoring for toxicity (Heparin, Nitro, Insulin, Cardizem)? @ -[No] Were any procedures done? @ -[No] Diagnosis/symptom? @ -[default] Acute, or Chronic, or Acute on Chronic? @ -[default] Uncomplicated (without systemic symptoms) or Complicated (systemic symptoms)? @ -[default] Side effects of treatment? @ -[No] Exacerbation, Progression, or Severe Exacerbation? @ -[No] Poses a threat to life or bodily function? How? (Chest pain, USA, MS, pneumonia, PE, COPD, DKA, ARF, appy, cholecystitis, CVA, Diverticulitis, Homicidal, Suicidal, threat to staff... and all critical care pts) @ -[No] - Lab Data Result diagrams: 11/10/24 17:21 11/10/24 17:21 Lab Results 11/10/24 11/10/24 11/10/24 Range/Units 17:21 17:21 17:21 WBC 7.28 (4.50-10.00) 10*3/uL RBC 4.00 L (4.10-5.20) 10*6/uL Hgb 12.6 (12.0-15.0) g/dL Hct 38.0 (37.2-46.3) % MCV 95.0 (80.0-97.0) fL MCH 31.5 (27.0-32.0) pg MCHC 33.2 (32.0-37.0) g/dL Plt Count 227 (140-440) 10*3/uL MPV 10.9 (9.5-12.2) fL Immature Gran % (Auto) 0.3 % Neutrophils % 67.2 % Lymphocytes % 15.2 % Monocytes % 7.6 % Eosinophils % 8.9 % Basophils % 0.8 % Immature Gran # 0.02 (0.00-0.04) 10*3/uL Neutrophils # 4.89 (1.80-7.70) 10*3/uL Lymphocytes # 1.11 (0.90-5.00) 10*3/uL Monocytes # 0.55 (0.20-1.00) 10*3/uL Eosinophils # 0.65 H (0.04-0.35) 10*3/uL Basophils # 0.06 (0.00-0.10) 10*3/uL PT 10.3 (10.0-12.5) sec INR 0.9 (<1.2) APTT 21.6 L (22.0-30.0) sec Sodium 136 L (137-145) mmol/L Potassium 4.3 (3.5-5.1) mmol/L Chloride 97 L (98-107) mmol/L Carbon Dioxide 33 H (22-30) mmol/L Anion Gap 6 mmol/L BUN 54 H (7-17) mg/dL Creatinine 1.80 H (0.52-1.04) mg/dL Est GFR (CKD-EPI)AfAm 34 (>60 ml/min/1.73 sqM) Est GFR (CKD-EPI)NonAf 29 (>60 ml/min/1.73 sqM) Glucose 117 H (74-99) mg/dL Calcium 9.5 (8.4-10.2) mg/dL Total Bilirubin 0.6 (0.2-1.3) mg/dL AST 34 (14-36) U/L ALT 24 (4-34) U/L Alkaline Phosphatase 118 (38-126) U/L Creatine Kinase 140 H (30-135) U/L Troponin I (0.000-0.034) ng/mL Total Protein 7.3 (6.3-8.2) g/dL Albumin 4.1 (3.5-5.0) g/dL 11/10/24 Range/Units 17:21 WBC (4.50-10.00) 10*3/uL RBC (4.10-5.20) 10*6/uL Hgb (12.0-15.0) g/dL Hct (37.2-46.3) % MCV (80.0-97.0) fL MCH (27.0-32.0) pg MCHC (32.0-37.0) g/dL Plt Count (140-440) 10*3/uL MPV (9.5-12.2) fL Immature Gran % (Auto) % Neutrophils % % Lymphocytes % % Monocytes % % Eosinophils % % Basophils % % Immature Gran # (0.00-0.04) 10*3/uL Neutrophils # (1.80-7.70) 10*3/uL Lymphocytes # (0.90-5.00) 10*3/uL Monocytes # (0.20-1.00) 10*3/uL Eosinophils # (0.04-0.35) 10*3/uL Basophils # (0.00-0.10) 10*3/uL PT (10.0-12.5) sec INR (<1.2) APTT (22.0-30.0) sec Sodium (137-145) mmol/L Potassium (3.5-5.1) mmol/L Chloride (98-107) mmol/L Carbon Dioxide (22-30) mmol/L Anion Gap mmol/L BUN (7-17) mg/dL Creatinine (0.52-1.04) mg/dL Est GFR (CKD-EPI)AfAm (>60 ml/min/1.73 sqM) Est GFR (CKD-EPI)NonAf (>60 ml/min/1.73 sqM) Glucose (74-99) mg/dL Calcium (8.4-10.2) mg/dL Total Bilirubin (0.2-1.3) mg/dL AST (14-36) U/L ALT (4-34) U/L Alkaline Phosphatase (38-126) U/L Creatine Kinase (30-135) U/L Troponin I <0.012 (0.000-0.034) ng/mL Total Protein (6.3-8.2) g/dL Albumin (3.5-5.0) g/dL Disposition Clinical Impression: Cranial nerve palsy Disposition: ADMITTED IP TO THIS HOSP Condition: Stable Is patient prescribed a controlled substance at d/c from ED?: No Referrals: Markie Luciano MD [Primary Care Provider] - 1-2 days
[2024-11-10 17:26] LABS: Basophils # (A) 0.06 10*3/uL (0.00-0.10); Basophils % (A) 0.8 %; Eosinophils # (A) 0.65 10*3/uL (0.04-0.35); Eosinophils % (A) 8.9 %; HGB 12.6 g/dL (12.0-15.0); Lymphocytes # (A) 1.11 10*3/uL (0.90-5.00); Lymphocytes % (A) 15.2 %; MCH 31.5 pg (27.0-32.0); MCHC 33.2 g/dL (32.0-37.0); Mean Platelet Volume 10.9 fL (9.5-12.2); Monocytes # (A) 0.55 10*3/uL (0.20-1.00); Monocytes % (A) 7.6 %; Neutrophils # (A) 4.89 10*3/uL (1.80-7.70); Neutrophils % (A) 67.2 %; Platelet Count 227 10*3/uL (140-440); RDW 13.7 % (11.5-14.5); WBC 7.28 10*3/uL (4.50-10.00)
[2024-11-10 17:37] LABS: ALT 24 U/L (4-34); AST 34 U/L (14-36); African American GFR (CKD) 34 (>60 ml/min/1.73 sqM); Albumin 4.1 g/dL (3.5-5.0); Alkaline Phosphatase 118 U/L (38-126); Anion Gap 6 mmol/L; Blood Urea Nitrogen 54 mg/dL (7-17); Calcium 9.5 mg/dL (8.4-10.2); Carbon Dioxide 33 mmol/L (22-30); Chloride 97 mmol/L (98-107); Creatine Kinase 140 U/L (30-135); Glucose 117 mg/dL (74-99); Non-African American GFR(CKD) 29 (>60 ml/min/1.73 sqM); Potassium 4.3 mmol/L (3.5-5.1); Sodium 136 mmol/L (137-145); Total Bilirubin 0.6 mg/dL (0.2-1.3); Total Protein 7.3 g/dL (6.3-8.2)
[2024-11-10 17:50] LABS: INR 0.9 (<1.2); Partial Thromboplastin Time 21.6 sec (22.0-30.0); Prothrombin Time 10.3 sec (10.0-12.5)
--- NOTE | 2024-11-10 18:07 | CT ---
EXAMINATION TYPE: CT brain wo con CT DLP: 1143.4 mGycm, Automated exposure control for dose reduction was used. DATE OF EXAM: 11/10/2024 5:59 PM COMPARISON: None. CLINICAL INDICATION:Female, 64 years old with history of Neuro deficit, acute, stroke suspected, left eye blurred vision TECHNIQUE: Brain: Multiple axial CT images of the brain were obtained without IV contrast. . Coronal and sagitta l reformats reviewed. FINDINGS: Brain: Extra-axial spaces: No abnormal extra-axial fluid collections. Ventricular system: Within normal limits Cerebral parenchyma: No acute intraparenchymal hemorrhage or mass effect. The velazquez-white junction is well differentiated. Scattered hypoattenuating areas are seen within the periventricular white matte r. Cerebellum: Unremarkable. Mass effect: No evidence of midline shift. Intracranial vasculature: Atherosclerotic calcifications of the intracranial vessels. Soft tissues: Normal. Calvarium/osseous structures: No depressed skull fracture. Paranasal sinuses and mastoid air cells: The mastoid air cells are clear. Minimal mucosal thickening in the left maxillary sinus. The remaining paranasal sinuses are clear. The optic chiasm appears unre markable on CT. Visualized orbits: Bilateral aphakia IMPRESSION: 1. No acute intracranial process. 2. Nonspecific white matter changes, likely secondary to chronic small vessel ischemic disease. [facility], , 11/10/2024 6:05 PM
[2024-11-10] MEDS ORDERED: ALPRAZolam 0.25 MG TAB PO PRN (18:56)
[2024-11-10] MEDS ORDERED: ONDANSETRON 4 MG/2 ML VIAL IVP PRN (18:56)
[2024-11-10] MEDS ORDERED: NALOXONE 0.4 MG/ML 1 ML VIAL IV PRN (18:56)
[2024-11-10 21:02] LABS: Glucose,Whole Blood 87 mg/dL (70-110)
[2024-11-10] MEDS: allopurinoL 100 MG TAB PO SCH (22:31)
[2024-11-10] MEDS: ATORVASTATIN 10 MG TAB PO SCH (22:31)
[2024-11-10] MEDS: FUROSEMIDE 40 MG TAB PO SCH (22:31)
[2024-11-10] MEDS: ACETAMINOPHEN TAB 325 MG TAB PO PRN (22:31)
--- NOTE | 2024-11-11 00:02 | P.HPIM ---
History of Present Illness H&P Date: 11/10/24 Chief Complaint: Diplopia Patient is a 64 year old female with past medical history of type II diabetes mellitus- insulin dependent, hyperlipidemia, hypertension, CKD stage IV presented to the ED with diplopia. Patient reports diplopia that has been going on for a week now. She saw her supervisor paste mixing who told her that it would resolve on its own. She states that her symptoms have worsened in the past couple of days. She reports dizziness if she opens both her eyes but felt fine if she kept only one eye open. So she taped her left eye shut to prevent dizziness. She followed up with her supervisor paste mixing again who then advised her to go to the ED for further evaluati on. She mentions of a history of vitreous hemorrhage. She denies any falls or trauma to the head or eye. Patient denies any missed doses of any medications. Denies any previous cardiac history or prior history of stroke. Additionally, she also mentions having urinary retention, she has followed with Urologist at [facility]. She has been self catheterizing 2-3 times a day and she takes Methanamine prophylactically to prevent UTIs. She follows up with Dr. Gtz for CKD stage IV, who has her on Lasix. She reports lower extremity edema that is worse at the end of the day. Patient also has an insulin pump with Dexcom. Patient states having concerns for a thyroid nodule. She states being diagnosed with AMY in the past but isn't using CPAP as she felt it was not helping her. Denies fever, chills, shortness of breath, cough, chest pain, palpitations, abdominal pain, nausea, vomiting, hematuria, dysuria, hematochezia, melena, headache, slurred speech, numbness, tingling, lightheadedness,. ED documentation reviewed. Vitals on admission T 97.8 F, GA 84 bpm, RR 16, BP 158/83, oxygen saturation 99% on room air EKG independently interpreted as sinus rhythm, poor R wave progression, rate 78 bpm, QTc [address] shows no acute process, nonspecific white matter changes likely secondary to chronic small vessel ischemic disease Labs on admission show WBC 7.28, hemoglobin 12.6, platelet count 227, INR 0.9, sodium 136, potassium 4.3, bicarb 33, BUN 54, creatinine 1.8, GFR 29, total bilirubin 0.6, troponin I <0.012, creatinine kinase 140 Patient admitted to internal medicine service Review of systems: Pertinent positives and negatives as discussed in HPI, a complete review of systems was performed and all other systems are negative. Physical examination: Vital signs reviewed General: nontoxic, no distress, appears at stated age Derm: warm, dry, intact Head: atraumatic, normocephalic, symmetric Eyes: drooping left eyelid, diplopia in left>right, EOMI, anicteric sclera, normal light reflex, Cardiovascular: S1 S2 reg, no murmur Lungs: CTA bilateral, no rhonchi, no rales, no accessory muscle use Abdominal: soft, non-tender to palpation, insulin pump seen Extremities: trace edema on bilateral lower extremities, No cyanosis, clubbing Neuro: Alert, Oriented, strength 5/5 in all 4 extremities, finger to nose test with mild overshooting/undershooting with only left eye open, finger to nose test normal with both eyes open or only right eye open, no facial droop, no slurring of speech, normal rapid alternating movements Psych: well appearing, appropriate affect Assessment/Plan: Patient is a 64 year old female with past medical history of diabetes mellitus, hyperlipidemia, hypertension, AMY on CPAP, CKD stage IV presented to the ED with double vision. Active: #. Binocular Diplopia #. Possible TIA/CVA vs Wernicke's syndrome vs Thyroid ophthamopathy EKG independently interpreted as sinus rhythm, poor R wave progression, rate 78 bpm, QTc [address] shows no acute process, nonspecific white matter changes likely secondary to chronic small vessel ischemic disease Patient on Thiamine supplementation. She also stated being concerned about thyroid nodule Obtain lipid panel, TSH, thiamine level, anti Acetylcholine receptor antibodies Start Atorvastatin 40 mg PO HS and Aspirin 81 mg PO daily Neurochecks Q4HR Neurology is consulted #. Metabolic alkalosis #. AMY, not on CPAP bicarb elevated at 33 Monitor BMP #. Nausea and vomiting Continue ondansetron 4 mg IVP every 8 hours as needed Chronic: #. Type diabetes mellitus, insulin-dependent #. CKD stage IV #. Hyperlipidemia #. GERD #. Gout Continue allopurinol 100 mg p.o. at bedtime, pantoprazole 40 mg p.o. daily, atorvastatin 10 mg PO daily, Continue insulin pump, furosemide 40 mg p.o. twice daily, ferrous sulfate 325 mg p.o. daily, methenamine 1 g p.o. twice daily, th iamine 100 mg p.o. daily F: None E: Replete as required N: Consistent carbohydrate diet A: Ambulatory DVT prophylaxis: Heparin 5000 units SQ every 8 hours GI prophylaxis: Pantoprazole 40 mg p.o. daily The patient is admitted with an anticipated less than 2 midnight stay for evaluation of double vision CODE STATUS: Full code Discussed with: Patient Anticipated discharge place: Pending clinical course Dictation was produced using [employer] dictation software. please excuse any grammatical, word or spelling errors. Savanah Leos MD PGY-1 IM I have seen and evaluated the patient today. I Discussed the case with the resident and agree with the resident's findings I edited the assessment and plan as necessary as documented in the resident's note. Past Medical History Past Medical History: Diabetes Mellitus, Hyperlipidemia, Hypertension, Renal Di sease, Sleep Apnea/CPAP/BIPAP Additional Past Medical History / Comment(s): Kidney Disease - Stage 4. Urinary retention, has to self cath BID. Pain in feet. No sleep apnea device use. Varicose veins. History of Any Multi-Drug Resistant Organisms: None Reported Past Surgical History: Breast Surgery, Section, Orthopedic Surgery, Uterine Ablation Additional Past Surgical History / Comment(s): Left breast biopsy, bilateral foot surgery. Past Anesthesia/Blood Transfusion Reactions: Previous Problems w/ Anesthesia, Motion Sickness Additional Past Anesthesia/Blood Transfusion Reaction / Comment(s): States stopped breathing when she had her breast biopsy. States she absorbs sedation quickly and is very sensitive to sedation so she does not require very much. States her mother and grandmother have the same problem. Past Psychological History: No Psychological Hx Reported Smoking Status: Never smoker Past Alcohol Use History: None Reported Past Drug Use History: None Reported - Past Family History Mother Family Medical History: No Reported History Father Family Medical History: Cancer Additional Family Medical History / Comment(s): Gist Tumor wrapped around esophagus. Medications and Allergies Home Medications Medication Instructions Recorded Confirmed Type Atorvastatin [Lipitor] 10 mg PO HS 06/13/17 11/10/24 History Furosemide [Lasix] 40 mg PO BID 06/13/17 11/10/24 History Insulin Aspart (For Pump) [NovoLOG 0.01 unit SQ-PUMP CONTINUOUS 06/13/17 11/10/24 History (For Pump)] Losartan Potassium [Cozaar] 25 mg PO HS 06/13/17 11/10/24 History Metoprolol Succinate (ER) [Toprol 50 mg PO BID 06/13/17 11/10/24 History Xl] Thiamine [Vitamin B-1] 100 mg PO DAILY 06/13/17 11/10/24 History allopurinoL [Zyloprim] 100 mg PO HS 06/13/17 11/10/24 History Calcium Carbonate [Calcium] 600 mg PO DAILY 11/10/24 11/10/24 History Ferrous Sulfate [Feosol] 325 mg PO DAILY 11/10/24 11/10/24 History Methenamine Hippurate 1 gm PO BID 11/10/24 11/10/24 History Omeprazole 40 mg PO DAILY 11/10/24 11/10/24 History Vitamin D3 (Unknown Strength) 1 dose PO BID 11/10/24 11/10/24 History Allergies Allergy/AdvReac Type Severity Reaction Status Date / Time lisinopril Allergy Cough Verified 11/10/24 19:06 Physical Exam Vitals: Vital Signs Temp Pulse Resp BP Pulse Ox 11/10/24 15:44 97.8 F 84 16 158/83 99 Intake and Output 11/10/24 11/10/24 11/10/24 06:59 14:59 22:59 Other: Weight 106.594 kg Results CBC & Chem 7: 11/10/24 17:21 11/10/24 17:21 Labs: Abnormal Lab Results - Last 24 Hours (Table) 11/10/24 11/10/24 11/10/24 Range/Units 17:21 17:21 17:21 RBC 4.00 L (4.10-5.20) 10*6/uL Eosinophils # 0.65 H (0.04-0.35) 10*3/uL APTT 21.6 L (22.0-30.0) sec Sodium 136 L (137-145) mmol/L Chloride 97 L (98-107) mmol/L Carbon Dioxide 33 H (22-30) mmol/L BUN 54 H (7-17) mg/dL Creatinine 1.80 H (0.52-1.04) mg/dL Glucose 117 H (74-99) mg/dL Creatine Kinase 140 H (30-135) U/L
[2024-11-11] MEDS: METOPROLOL SUCCINATE (ER) 50 MG TAB.ER.24H PO SCH (00:32)
[2024-11-11] MEDS: LOSARTAN 25 MG TAB PO SCH (00:32)
[2024-11-11] MEDS: NON FORMULARY DRUG (Methenamine Hippurate [Methenamine Hippurate] 1 GM Tablet) PO SCH (00:35)
[2024-11-11 06:26] LABS: Glucose,Whole Blood 96 mg/dL (70-110)
[2024-11-11] MEDS: PANTOPRAZOLE 40 MG TABLET PO SCH (06:45)
[2024-11-11] MEDS: METHENAMINE 1 GM PO SCH (06:49)
[2024-11-11 08:19] LABS: BUN/Creat Ratio 27.71 Ratio (12.00-20.00); Blood Urea Nitrogen 47.1 mg/dL (9.0-27.0); Calcium 8.9 mg/dL (8.7-10.3); Carbon Dioxide 25.8 mmol/L (21.6-31.8); Chloride 102 mmol/L (96-109); Chol/HDL Ratio 3.05 Ratio; Glucose 93 mg/dL (70-110); LDL Cholesterol,Calculated 87.9 mg/dL (0.0-131.0); Sodium 142 mmol/L (135-145); VLDL Calculation 15.62 mg/dL (5.00-40.00)
[2024-11-11 08:20] LABS: HGB 11.1 g/dL (12.0-15.0); MCH 30.5 pg (27.0-32.0); MCHC 31.7 g/dL (32.0-37.0); MCV 96.2 FL (80.0-97.0); Mean Platelet Volume 11.7 FL (9.5-12.2); NRBC Per 100 WBC 0 X 10*3/uL (0.00-0.01); Platelet Count 209 X 10*3/uL (140-440); RBC 3.64 X 10*6/uL (4.10-5.20); RDW 13.9 % (11.5-14.5); WBC 6.51 X 10*3/uL (4.50-10.00)
[2024-11-11] MEDS: Insulin Aspart (For Pump) 100 UNIT/ML VIAL SQ-PUMP SCH (09:13)
[2024-11-11] MEDS: FERROUS SULFATE 325 MG TAB PO SCH (09:24)
[2024-11-11] MEDS: HEPARIN SODIUM,PORCINE 5,000 UNIT/ML 1 ML VIAL SQ SCH ×2 (09:24)
[2024-11-11] MEDS: THIAMINE 100 MG TAB PO SCH (09:24)
[2024-11-11 12:16] LABS: Glucose,Whole Blood 139 mg/dL (70-110)
--- NOTE | 2024-11-11 13:43 | US ---
EXAMINATION TYPE: US carotid duplex BILAT DATE OF EXAM: 11/11/2024 COMPARISON: NONE CLINICAL INDICATION: Female, 64 years old with history of r/o CVA; left eye blurred vision with nonre sponsive eye Additional History: .... TECHNIQUE: Grayscale, color Doppler and spectral Doppler evaluation of the bilateral carotid systems and vertebral arteries. Indirect Doppler criteria was utilized. FINDINGS: EXAM MEASUREMENTS: RIGHT: Peak Systolic Velocity (PSV) cm/sec ----- Right CCA: 83.1 ----- Right ICA: 86.4 ----- Right ECA: 87.4 ICA/CCA ratio: 1.0 RIGHT: End Diastole cm/sec ----- Right CCA: 17.1 ----- Right ICA: 23.7 ----- Right ECA: 4.7 LEFT: Peak Systolic Velocity (PSV) cm/sec ----- Left CCA: 79.8 ----- Left ICA: 76.8 ----- Left ECA: 69.1 ICA/CCA ratio: 14.2 LEFT: End Diastole cm/sec ----- Left CCA: 17.1 ----- Left ICA: 27.4 ----- Left ECA: 14.2 VERTEBRALS (direction of flow): Right Vertebral: Antegrade Left Vertebral: Antegrade Rhythm: Normal CERTIFIED ORTHOTIST PRACTICE MANAGER NOTES: No plaque or elevated velocities seen Color Doppler imaging shows patency with blood flow throughout the carotid artery. Spectral waveforms are within normal limits. IMPRESSION: Right: No hemodynamically significant stenosis. Left: No hemodynamically significant stenosis. Criteria for Assigning % of Stenosis / Diameter reduction (Estimation based on the indirect measurements of the internal carotid artery velocities (ICA PSV). 1. Normal (no stenosis)=ICA PSV < 180 cm/s: ratio < 2.0: ICA EDV<40 cm/s. 2. Less than 50% stenosis=ICA PSV < 180 cm/s: ratio < 2.0: ICA EDV<40 cm/s. 3. 50 to 69% stenosis=ICA PSV of 180 to 230 cm/s: ration 2.0 ? 4.0: ICA EDV 40-100 cm/s. PSV 125-180 cm/sec and ICA/CCA PSV Ratio ? 2.0 is also consistent with 50-69% stenosis 4. Greater than 70% stenosis to near occlusion= ICA PSV > 230 cm/s: ratio > 4.0: ICA EDV > 100 cm/s. 5. Near occlusion= ICA PSV velocities may be low or undetectable: variable ratio and ICA EDV. 6. Total occlusion=unable to detect flow. [facility], , 11/11/2024 1:41 PM
--- NOTE | 2024-11-11 15:13 | MR ---
INDICATION: Patient age:Female; 64 years old; Reason for study: r/o CVA; PHH. Neuro deficit. COMPARISON: CT brain 11/10/2024. TECHNIQUE: Multi planar, multi sequence imaging was performed through the brain without the administr ation of intravenous contrast. FINDINGS: The velazquez-white junctions, ventricular system, basal cisterns appear unremarkable. Age-appropriate cer ebral parenchymal volume. Diffusion-weighted imaging shows no evidence of restricted diffusion to sug gest acute/subacute infarct. Intracranial arterial flow voids are maintained. Midline structures show no abnormality. Patchy areas of high T2/FLAIR signal intensity are seen within the supratentorial pe riventricular and subcortical white matter. Largest lesion appears to be within the right frontal lob e subcortical white matter measuring up to 5 mm (series 601, image 21). Grossly 20 lesions identified . The susceptibility weighted images demonstrate a few scattered tiny foci of blooming artifact withi n the cerebral parenchyma and cerebellum consistent with prior hemosiderin deposition. The bone marrow signal is within normal limits. The paranasal sinuses are unremarkable. Bilateral ap hakia. The globes appear symmetric. The optic nerves appear symmetric and unremarkable. No suspicious increased FLAIR signal within the orbits. No focal enlargement of the ocular muscles. IMPRESSION: 1. No evidence of intracranial mass or acute/subacute infarct. 2. Nonspecific white matter changes. Etiologies include small vessel ischemic disease, demyelinating disease, chronic migraines, vasculitis, Lyme disease versus other considerations. [facility], , 11/11/2024 3:11 PM
[2024-11-11 15:16] VITALS: BP 112/71; PULSE 77; RESP 16; TEMP 98.8
--- NOTE | 2024-11-11 16:17 | P.DS ---
Providers Date of admission: 11/10/24 18:27 Expected date of discharge: 11/11/24 Attending physician: Obi Tucker MD Consults: 11/10/24 18:56 Consult Physician Routine Consulting Provider: Nori Jacobs Consult Reason/Comments: CN palsy Do you want consulting provider notified?: Yes Primary care physician: [facility] Course: 64 year old F with PMH of DM, HTN, HLD, CKD stage IV presents to the ED with diplopia ongoing for the past week. Progressively getting worse. Diplopia improves when closing one eye. She denies any confusion, slurred speech, focal neuologic deficits. Follows Dr. Gracia as her Opthalmologist that sent her to the hospital to rule out CVA. In the ED she underwent extensive evaluation. T 97.8 F, DE 84 bpm, RR 16, BP 158/83, oxygen saturation 99% on room air. EKG showed sinus rhythm, poor R wave progression, rate 78 bpm, QTc [address] shows no acute process, nonspecific white matter changes likely secondary to chronic small vessel ischemic disease. Labs on admission show WBC 7.28, hemoglobin 12.6, platelet count 227, INR 0.9, sodium 136, potassium 4.3, bicarb 33, BUN 54, creatinine 1.8, GFR 29, total bilirubin 0.6, troponin I <0.012, creatinine kinase 140. Patient was admitted for Neurology evaluation and rule out CVA. 11/11 Patient was seen and examined. Symptoms continued. CBC and CMP significant for RBC 3.64, Hg 11.1, Hct 35, AG 14.2, BUN 47.1, Cr 1.7. Lipid panel T. Chol 154, LDL 87.9. TSH 1.73. MRI brain neg for acute pathology. Carotid doppler neg for stenosis. Discussed with Dr. Jacobs, cleared for discharge. Discharge Plan: Follow up with Dr. Gracia within 1 week of discharge. General: toxic, no distress Derm: warm, dry Head: atraumatic, normocephalic, symmetric Mouth: no lip lesion, mucus membranes moist Cardiovascular: good distal perfusion in all 4 extremities Lungs: breathing comfortably, no accessory muscle use Ext: no gross muscle atrophy, no edema, no contractures Neuro: No focal neurologic deficits. Psych: Alert and oriented. Discharge Diagnosis Diplopia Diabetes mellitus CKD stage IV Normocytic anemia likely due to AOCD from CKD with no active signs of bleeding. Hyperlipidemia GERD Gout This complex discharge took 35 minutes to complete. Patient Condition at Discharge: Stable Plan - Discharge Summary Discharge Rx Participant: No New Discharge Prescriptions: Continue Insulin Aspart (For Pump) [NovoLOG (For Pump)] 0.01 unit SQ-PUMP CONTINUOUS Atorvastatin [Lipitor] 10 mg PO HS Thiamine [Vitamin B-1] 100 mg PO DAILY Metoprolol Succinate (ER) [Toprol XL] 50 mg PO BID allopurinoL [Zyloprim] 100 mg PO HS Losartan Potassium [Cozaar] 25 mg PO HS Furosemide [Lasix] 40 mg PO BID Ferrous Sulfate [Iron (65 MG Elemental)] 325 mg PO DAILY Omeprazole 40 mg PO DAILY Calcium Carbonate [Calcium] 600 mg PO DAILY Vitamin D3 (Unknown Strength) 1 dose PO BID Methenamine Hippurate 1 gm PO BID Discharge Medication List Atorvastatin [Lipitor] 10 mg PO HS 06/13/17 [History] Furosemide [Lasix] 40 mg PO BID 06/13/17 [History] Insulin Aspart (For Pump) [NovoLOG (For Pump)] 0.01 unit SQ-PUMP CONTINUOUS 06/13/17 [History] Losartan Potassium [Cozaar] 25 mg PO HS 06/13/17 [History] Metoprolol Succinate (ER) [Toprol XL] 50 mg PO BID 06/13/17 [History] Thiamine [Vitamin B-1] 100 mg PO DAILY 06/13/17 [History] allopurinoL [Zyloprim] 100 mg PO HS 06/13/17 [History] Calcium Carbonate [Calcium] 600 mg PO DAILY 11/10/24 [History] Ferrous Sulfate [Iron (65 MG Elemental)] 325 mg PO DAILY 11/10/24 [History] Methenamine Hippurate 1 gm PO BID 11/10/24 [History] Omeprazole 40 mg PO DAILY 11/10/24 [History] Vitamin D3 (Unknown Strength) 1 dose PO BID 11/10/24 [History] Follow up Appointment(s)/Referral(s): Leroy Gracia MD [STAFF PHYSICIAN] - 1 Week Markie Luciano MD [Primary Care Provider] - 1-2 days Discharge Disposition: HOME SELF-CARE
[2024-11-11 17:32] LABS: Glucose,Whole Blood 130 mg/dL (70-110)
== END 2024-11-11 18:40 | disposition home or self-care (01) ==
LOC: EC 15:43 → 6NMEDSUR 18:27
PROVIDERS: ADMIT Family Medicine; ATTEND Family Medicine
DX: H53.2 Diplopia (principal); E11.22 Type 2 diabetes mellitus with diabetic chronic kidney disease; G52.9 Cranial nerve disorder, unspecified; E87.3 Alkalosis; G47.33 Obstructive sleep apnea (adult) (pediatric); R11.2 Nausea with vomiting, unspecified; K21.9 Gastro-esophageal reflux disease without esophagitis; M10.9 Gout, unspecified; D63.1 Anemia in chronic kidney disease; E78.5 Hyperlipidemia, unspecified; G47.30 Sleep apnea, unspecified; I12.9 Hypertensive chronic kidney disease with stage 1 through stage 4 chronic kidney disease, or unspecified chronic kidney disease; N18.4 Chronic kidney disease, stage 4 (severe); Z79.82 Long term (current) use of aspirin; Z79.899 Other long term (current) drug therapy; Z79.4 Long term (current) use of insulin; Z96.41 Presence of insulin pump (external) (internal)
CPT/HCPCS: 99285; 36415; 84425; 80061; 80053; 80048; 84443; 82550; 84484; 85025; 85027; 85610; 85730; 93880; 70450; 70551; G0378 ×2